=== PATIENT | male | born 1995 | race Two or more races ===

== ENCOUNTER 2020-10-25 21:52 | Emergency (ER) | payer MEDICAID ==
[~2020-10-25] VITALS: Ht 170.2 cm; Wt 70.3 kg
[2020-10-26] MEDS ORDERED: IBUPROFEN 800 MG TAB PO ONE (02:00)
[2020-10-26 03:00] VITALS: BP 113/62
== END 2020-10-26 04:06 | disposition home or self-care (01) ==
LOC: ER 21:52
DX: S20.211A Contusion of right front wall of thorax, initial encounter (principal); X50.1XXA Overexertion from prolonged static or awkward postures, initial encounter; Y93.72 Activity, wrestling; Y92.89 Other specified places as the place of occurrence of the external cause; Y99.8 Other external cause status
CPT/HCPCS: 71101